=== PATIENT | male | born 1995 | race Caucasian/White ===

== ENCOUNTER 2021-05-08 12:26 | Outpatient (CLI) | payer BC ==
[~2021-05-08] VITALS: Ht 177.8 cm; Wt 100.8 kg
[2021-05-08] MEDS ORDERED: SULF1TAB38 PO (12:37)
== END 2021-05-08 12:50 | disposition home or self-care (01) ==
LOC: PREOP 12:26
PROVIDERS: ATTEND Orthopaedic Surgery
DX: Z01.818 Encounter for other preprocedural examination (principal)

== ENCOUNTER → 2021-05-08 | Outpatient (CLI) | payer BC ==
[~2021-05-08] MED LIST: SULF1TAB38 PO
== END ==
LOC: ORTHO 10:45
PROVIDERS: ATTEND Orthopaedic Surgery
DX: S61.442A Puncture wound with foreign body of left hand, initial encounter (principal); X58.XXXA Exposure to other specified factors, initial encounter
CPT/HCPCS: 99202

== ENCOUNTER 2021-05-12 06:12 | Day surgery (SDC) | payer BC ==
[2021-05-12] VITALS (8 sets, daily range): BP systolic 93–141; BP diastolic 44–84
[~2021-05-12] VITALS: Ht 177 cm; Wt 100.8 kg
[2021-05-12] MEDS ORDERED: ceFAZolin 2 GM IV Premixed 50 ML IV ONE (06:30)
[2021-05-12] MEDS ORDERED: BUPIVACAINE 0.25% 30 ML (SENSORCAINE) VIAL ONE (06:46)
[2021-05-12] MEDS: LACTATED RINGERS 1,000 ML IV PRN ×2 (06:56→08:01)
[2021-05-12] MEDS ORDERED: LIDOCAINE 1% INJ 20 ML VIAL ONE (07:01)
[2021-05-12] MEDS ORDERED: PROPOFOL INJECTION 50 ML IV ONE ×2 (07:01→07:46)
[2021-05-12] MEDS ORDERED: MIDAZOLAM 2 MG/2 ML (VERSED) VIAL ONE (07:01)
[2021-05-12] MEDS ORDERED: fentaNYL INJ 100 MCG/2 ML AMP ONE (07:02)
--- NOTE | 2021-05-12 07:16 | Progress Note-Pre Operative ---
Pre-Operative Progress Note H&P Reviewed The H&P was reviewed, patient examined and no changes noted. Date Seen by Provider: May 12, 2021 Time Seen by Provider: 07:10 Date H&P Reviewed: May 12, 2021 Time H&P Reviewed: 07:10 Pre-Operative Diagnosis: Left Hand Foreign Body KEISHA ROBERTS MD May 12, 2021 07:16
[2021-05-12] MEDS ORDERED: NEO/POLY/BAC (NEOSPORIN) OINT 15 GM TUBE ONE (07:51)
--- NOTE | 2021-05-12 08:05 | Anesthesia-General Post-Op ---
MAC Patient Condition Mental Status/LOC: Same as Preop Cardiovascular: Satisfactory Nausea/Vomiting: Absent Respiratory: Satisfactory Pain: Controlled Complications: Absent Post Op Complications Complications None Follow Up Care/Instructions Patient Instructions None needed. Anesthesiology Discharge Order Discharge Order Patient is doing well, no complaints, stable vital signs, no apparent adverse anesthesia problems. No complications reported per nursing. EDDIE JUARES CRNA May 12, 2021 08:05
[2021-05-12] MEDS ORDERED: MEPERIDINE (DEMEROL) INJ 50 MG/ML IVP ONE (08:15)
[2021-05-12] MEDS ORDERED: ONDANSETRON 4 MG/2 ML (SDV) Z0FRAN IVP PRN (08:15)
[2021-05-12] MEDS ORDERED: fentaNYL INJ 100 MCG/2 ML AMP IVP ONE (08:15)
[2021-05-12] MEDS ORDERED: morphine INJ 10 MG/ML 1ML (SYR OR VIAL) IVP ONE (08:15)
--- NOTE | 2021-05-12 09:39 | Diagnostic Imaging Report ---
EXAMINATION: Fluoroscopy. INDICATION: Foreign body removal. FINDINGS: Fluoroscopic assistance was provided for Dr. Cano during his foreign body removal procedure. 3.6 seconds of fluoroscopy time was utilized. AP and lateral spot films of the left hand from [facility] performed on 05/05/2021 noted a roughly 3 cm faintly radiopaque foreign body in the soft tissues of the hand. On the post operative images, the foreign body is no longer clearly evident. IMPRESSION: Surgical assistance was provided for Dr. Cano. Dictated by: Dictated on workstation # [id number]
--- NOTE | 2021-05-19 11:01 | Operative Report - Ortho ---
Operative Report Surgeon (s)/Electrical Assembly Technician (s) Surgeon KEISHA ROBERTS MD Electrical Assembly Technician n/a Pre-Operative Diagnosis Left Hand Foreign Body Post-Operative Diagnosis same Operative Report Date of Procedure: May 12, 2021 Name of Procedure Performed: Removal of Foreign Body from Left Hand Description & Findings After obtaining informed consent and marking the patient in the preoperative holding area, the patient was administered IV antibiotics and taken to the operating room. Sedation was administered. Surgical timeout was taken. The left upper extremity was prepped and draped in the usual sterile fashion. Site was injected with local anesthetic. Incision was made over the ulnar border of the hand. Hemostats were used to bluntly dissect down to the foreign body. The hemostats were clamped onto the foreign body and ericka were used to dissect around the foreign body with gentle traction being applied. The foreign body was released and removed. It was a very slim conical piece with a pointed end, possibly a hard plastic versus a biologic formation. The wound was lavaged with saline. Closed with 4-0 nylon. Dressed with telfa, gauze wrap, and coban. Patient tolerated the procedure well and was stable to the recovery room. Anesthesia Type MAC plus Local Estimated Blood Loss minimal Specimen(s) collected/removed None KEISHA ROBERTS MD May 19, 2021 11:01
== END 2021-05-12 09:13 | disposition home or self-care (01) ==
LOC: SDC 06:12
PROVIDERS: ATTEND Orthopaedic Surgery
DX: S61.442A Puncture wound with foreign body of left hand, initial encounter (principal); Z18.9 Retained foreign body fragments, unspecified material
CPT/HCPCS: 76000; 87081

== ENCOUNTER → 2021-05-22 | Outpatient (CLI) | payer BC | LOC: ORTHO 09:28 | PROVIDERS: ATTEND Orthopaedic Surgery | DX: Z47.89 Encounter for other orthopedic aftercare (principal) ==